=== PATIENT | male | born 1945 | race Caucasian/White ===

== ENCOUNTER 2022-05-06 19:55 | Emergency (ER) | payer MEDICARE, SELFPAY ==
[2022-05-06] VITALS (17 sets, daily range): BP systolic 131–159; BP diastolic 89–107; PULSE 72–90; RESP 24; TEMP 37; O2SAT 92–98; BMI 23.4
[2022-05-06 21:06] LABS: PCR FLU A POSITIVE PCR FLU A (Negative); PCR FLU B Negative PCR FLU B (Negative); PCR RSV Negative PCR RSV (Negative)
[2022-05-06 21:09] LABS: SARS PCR* Negative SARS-CoV-2 (Negative)
[2022-05-06 21:23] LABS: Basophils Absolute Auto 0.01 K/uL (0.00-0.30); Basophils Percent Auto 0.1 % (0.0-3.0); Hematocrit 39.4 % (37.0-53.0); Hemoglobin* 13.8 gm/dL (13.5-17.5); Immature Granulocytes Abs Auto 0.02 K/uL (0.00-0.30); Immature Granulocytes Pct Auto 0.2 %; Mean Corpuscular HGB Conc 35 gm/dL (32-36); Mean Corpuscular Hemoglobin 30 pg (26-34); Mean Corpuscular Volume 86 fL (80-100); Monocytes Percent Auto 9.7 % (0.0-11.0); Platelet Count* 248 K/uL (140-440); RDW Coefficient of Variation % 12.1 % (11.5-15.5); Red Blood Count 4.58 m/uL (4.30-5.90); White Blood Count* 8.53 K/uL (4.50-11.00)
[2022-05-06] MEDS: LOPERAMIDE HCL 2 MG CAPSULE 4 MG PO (21:25)
[2022-05-06] MEDS: ONDANSETRON 2 MG/ML inj 4 MG IVP (21:25)
[2022-05-06] MEDS: 0.9 % SODIUM CHLORIDE 1000 ml 1,000 ML IV ×2 (21:26→23:21)
--- NOTE | 2022-05-06 21:31 | ED_ITS ---
HPI - General Adult General Chief complaint: Nausea/Vomiting Stated complaint: Cough Vomiting, Diarrhea Time Seen by Provider: 05/06/22 21:06 History of Present Illness HPI narrative: 77-year-old man presenting with spouse to the emergency department complaint of vomiting and diarrhea that began during a few days of coughing; symptoms all seem to have started with rhinorrhea. Spouse with similar symptoms. He thinks the mucus might have triggered him. Did take some what might be Tessalon Perles and that seems to have helped. He has not noted any hematemesis and this been no hematochezia. I ask him about pain any saddle yeah but it sounds like he is referring to joint aches. Old injuries various joints are enhanced in their discomfort. No rashes. Just feels totally worn out at this point. No particular exposures. Up-to-date with COVID and influenza vaccination. In ad dition to the cough keeping him awake, he thinks the cough medicines he has been taking cause him to have anxiety; ?I haven't slept in so long?. He does have [place] that he takes for back pain. Related Data Home Medications Medication Instructions Recorded Confirmed aspirin-sod bicarb-citric acid .ROUTE 05/06/22 lisinopril 10 mg tablet mg 05/06/22 mirtazapine 7.5 mg tablet mg 05/06/22 phenylephrine HCl 10 mg tablet 10 mg PO Q4-6H PRN 05/06/22 05/06/22 (Nasal Decongestant (phenylephrine)) zolpidem 10 mg tablet mg 05/06/22 Allergies Allergy/AdvReac Type Severity Reaction Status Date / Time No Known Drug Allergies Allergy Verified 05/06/22 20:17 Review of Systems Status of ROS: Reports: 10 or more systems reviewed and unremarkable except as noted in History and below [facility] Social History Smoking Status: Never smoker Do you use any of these nicotine containing products: None Second hand tobacco smoke exposure: No How often do you have a drink containing alcohol: 4 or more times a week AUDIT-C Alcohol total score: 4 Non-prescribed substance use: denies use Exam Narrative: Exam Narrative: Pleasant. Slim. Seems tired/fatigued. Breathing easily. Lungs with trace basilar crepitus that resolved. Good air movement. Cardiovascular with regular rate and rhythm no murmur rub or gallop. Abdomen is flat soft and appears to be nontender. Extremities are without edema. Well perfused peripherally moving all extremities without difficulty. Oropharynx is actually moist. Cranial nerves 2-12 appear to be intact. Const: Vital Signs, click to edit/add: Vital Signs - 24 hr 05/06/22 20:10 05/06/22 20:46 05/06/22 20:47 Temperature 98.6 F Pulse Rate 73 72 Pulse Rate [Left P ulse Oximeter] 84 Respiratory Rate 24 Blood Pressure 157/94 H Blood Pressure [Ri ght Upper Arm] 150/89 H Pulse Oximetry 98 94 92 Oxygen Delivery Me thod Room Air 05/06/22 21:00 05/06/22 21:01 05/06/22 21:31 Temperature Pulse Rate 75 75 82 Pulse Rate [Left P ulse Oximeter] Respiratory Rate Blood Pressure 152/91 H Blood Pressure [Ri ght Upper Arm] Pulse Oximetry 94 95 97 Oxygen Delivery Me thod 05/06/22 21:35 05/06/22 21:36 05/06/22 22:00 Temperature Pulse Rate 74 74 77 Pulse Rate [Left P ulse Oximeter] Respiratory Rate Blood Pressure 150/96 H Blood Pressure [Ri ght Upper Arm] Pulse Oximetry 96 95 97 Oxygen Delivery Me thod 05/06/22 22:01 05/06/22 22:02 05/06/22 22:15 Temperature Pulse Rate 77 75 79 Pulse Rate [Left P ulse Oximeter] Respiratory Rate Blood Pressure 153/89 H Blood Pressure [Ri ght Upper Arm] Pulse Oximetry 93 97 98 Oxygen Delivery Me thod 05/06/22 22:30 05/06/22 22:31 05/06/22 23:21 Temperature Pulse Rate 77 79 80 Pulse Rate [Left P ulse Oximeter] Respiratory Rate Blood Pressure 159/95 H Blood Pressure [Ri ght Upper Arm] Pulse Oximetry 94 92 94 Oxygen Delivery Me thod 05/06/22 23:30 05/06/22 23:32 05/07/22 00:00 Temperature Pulse Rate 82 90 85 Pulse Rate [Left P ulse Oximeter] Respiratory Rate Blood Pressure 131/107 H Blood Pressure [Ri ght Upper Arm] Pulse Oximetry 96 95 94 Oxygen Delivery Me thod 05/07/22 00:04 Temperature Pulse Rate 85 Pulse Rate [Left P ulse Oximeter] Respiratory Rate Blood Pressure Blood Pressure [Ri ght Upper Arm] Pulse Oximetry 94 Oxygen Delivery Me thod Documenting provider has reviewed patient's vital signs: yes Course Vital Signs Vital signs: Initial Vital Signs Temperature 98.6 F 05/06/22 20:10 Temperature Source Temporal Artery Scan 05/06/22 20:10 Pulse Rate 84 05/06/22 20:10 Respiratory Rate 24 05/06/22 20:10 Blood Pressure 150/89 H 05/06/22 20:10 Blood Pressure Mean 109 05/06/22 20:10 Blood Pressure Position Sitting 05/06/22 20:10 Pulse Oximetry 98 05/06/22 20:10 Oxygen Delivery Method 05/06/22 20:10 Vital Signs Temperature 98.6 F 05/06/22 20:10 Pulse Rate 84 05/06/22 20:10 Respiratory Rate 24 05/06/22 20:10 Blood Pressure 150/89 H 05/06/22 20:10 Pulse Oximetry 98 05/06/22 20:10 Oxygen Delivery Method 05/06/22 20:10 Temperature 98.6 F 05/06/22 20:10 Pulse Rate 85 05/07/22 00:04 Respiratory Rate 24 05/06/22 20:10 Blood Pressure 131/107 H 05/06/22 23:32 Pulse Oximetry 94 05/07/22 00:04 Oxygen Delivery Method 05/06/22 20:10 Medical Decision Making MDM Narrative Medical decision making narrative: Given IV fluids. Ultimately 2 L. mildly hyponatremic and labs; presumably this would have been normalized with the fluids he received of normal saline. Also received IV Zofran and oral loperamide. Ultimately interested in leaving following fluid resuscitation apparently feeling better but when inquired would mention again how he just had been feeling well. I take it to mean still with persistent fatigue. And then again his concern about lack of sleep and he thinks some anxiety and this regard. Was ordered for lorazepam orally. Unfortunately he did vomit this up he thinks due to mucus production. He had also been drinking straight water challenging I think a rather empty stomach. Tested positive for influenza A. Did do a chest x-ray which by my read seems to have infiltrative or possibly atelectatic process in the left lower lung field. I would note moderately elevated CRP. Due to duration of symptoms I think it is reasonable to treat him with some antibiotics at this point. Lab Data Lab results reviewed: Yes I reviewed the patient's lab results Labs: Lab Results 05/06/22 05/06/22 05/06/22 Range/Units 20:14 21:00 21:00 WBC 8.53 (4.50-11.00) K/uL RBC 4.58 (4.30-5.90) m/uL Hgb 13.8 (13.5-17.5) gm/dL Hct 39.4 (37.0-53.0) % MCV 86 (80-100) fL MCH 30 (26-34) pg MCHC 35 (32-36) gm/dL RDW Coeff of Antoine 12.1 (11.5-15.5) % Plt Count 248 (140-440) K/uL Neut % (Auto) 80.0 H (42.0-72.0) % Lymph % (Auto) 10.0 L (20-44) % [place]et % (Auto) 9.7 (0.0-11.0) % Eos % (Auto) 0.0 (0.0-7.0) % Baso % (Auto) 0.1 (0.0-3.0) % Neut # (Auto) 6.80 (1.7-7.0) K/uL Lymph # (Auto) 0.90 (0.90-2.90) K/uL Burnet # (Auto) 0.80 (0.00-0.90) K/UL Eos # (Auto) 0.00 (0.00-0.50) K/uL Baso # (Auto) 0.01 (0.00-0.30) K/uL Sodium 132 L (135-149) mmol/L Potassium 3.4 L (3.6-5.1) mmol/L Chloride 100 (96-114) mmol/L Carbon Dioxide 23 (20-32) mmol/L BUN 14 (7-30) mg/dL Creatinine 0.5 (0.5-1.5) mg/dL Estimated Creat Clear 60.80 Estimated GFR 106 ml/min Glucose 119 H (60-115) mg/dL Calcium 8.7 (8.4-10.6) mg/dL Total Bilirubin (0.1-1.5) mg/dL Direct Bilirubin (0.0-0.5) mg/dL AST (12-35) U/L ALT (4-50) U/L Alkaline Phosphatase (40-150) U/L C-Reactive Protein (0.5-1.0) mg/dL Total Protein (6.0-8.3) g/dL Albumin (3.3-5.0) g/dL SARS-CoV-2 (PCR) Negative SARS-CoV-2 (Negative) Influenza Type A (PCR) POSITIVE PCR FLU A A (Negative) Influenza Type B (PCR) Negative PCR FLU B (Negative) RSV (PCR) Negative PCR RSV (Negative) 05/06/22 Range/Units 21:00 WBC (4.50-11.00) K/uL RBC (4.30-5.90) m/uL Hgb (13.5-17.5) gm/dL Hct (37.0-53.0) % MCV (80-100) fL MCH (26-34) pg MCHC (32-36) gm/dL RDW Coeff of Antoine (11.5-15.5) % Plt Count (140-440) K/uL Neut % (Auto) (42.0-72.0) % Lymph % (Auto) (20-44) % Burnet % (Auto) (0.0-11.0) % Eos % (Auto) (0.0-7.0) % Baso % (Auto) (0.0-3.0) % Neut # (Auto) (1.7-7.0) K/uL Lymph # (Auto) (0.90-2.90) K/uL Burnet # (Auto) (0.00-0.90) K/UL Eos # (Auto) (0.00-0.50) K/uL Baso # (Auto) (0.00-0.30) K/uL Sodium (135-149) mmol/L Potassium (3.6-5.1) mmol/L Chloride (96-114) mmol/L Carbon Dioxide (20-32) mmol/L BUN (7-30) mg/dL Creatinine (0.5-1.5) mg/dL Estimated Creat Clear Estimated GFR ml/min Glucose (60-115) mg/dL Calcium (8.4-10.6) mg/dL Total Bilirubin 0.9 (0.1-1.5) mg/dL Direct Bilirubin 0.1 (0.0-0.5) mg/dL AST 27 (12-35) U/L ALT 24 (4-50) U/L Alkaline Phosphatase 51 (40-150) U/L C-Reactive Protein 7.8 H (0.5-1.0) mg/dL Total Protein 7.0 (6.0-8.3) g/dL Albumin 3.9 (3.3-5.0) g/dL SARS-CoV-2 (PCR) (Negative) Influenza Type A (PCR) (Negative) Influenza Type B (PCR) (Negative) RSV (PCR) (Negative) Discharge Plan Discharge Clinical Impression: Influenza A, Gastroenteritis Patient Disposition: Home w/ Parent or Adult Condition: Improved Additional Instructions: Focus on hydration. As I said straight water on an empty stomach or recently vomited stomach I think can be a little harsh. I would consider diluted juices or soup broths. Advancing your diet slowly over the next 36 hours to thicker soups and smoothies. Rice. [place]. If the diarrhea continues, can take loperamide if needed, as long as no fever or blood in your stool. Return for intractable vomiting, intractable diarrhea, increasing pain, shortness of breath. Liza from [facility] Prescriptions: No Action phenylephrine HCl [Nasal Decongestant (PE)] 10 mg tablet 10 mg PO Q4-6H PRN aspirin-sod bicarb-citric acid [[place] Extra Strength] .ROUTE lisinopril 10 mg tablet Label Comments: TAKE ONE TABLET BY MOUTH EVERY DAY zolpidem 10 mg tablet Label Comments: TAKE ONE TABLET BY MOUTH AT BEDTIME NEEDED FOR SLEEP--DO NOT USE WITH NARCOTIC PAIN MEDICATIONS mirtazapine 7.5 mg tablet Label Comments: TAKE ONE TABLET BY MOUTH AT BEDTIME Follow Up/Referrals: Lucila Valencia DO [Primary Care Provider] - Stand Alone Forms: [facility] Info Instructions
[2022-05-06 21:38] LABS: Albumin* 3.9 g/dL (3.3-5.0)
[2022-05-06 21:39] LABS: Chloride* 100 mmol/L (96-114); Potassium* 3.4 mmol/L (3.6-5.1); Sodium* 132 mmol/L (135-149)
[2022-05-06 21:41] LABS: Alanine Aminotransferase* 24 U/L (4-50); Alkaline Phosphatase* 51 U/L (40-150); Aspartate Amino Transferase* 27 U/L (12-35); Bilirubin Direct* 0.1 mg/dL (0.0-0.5); Bilirubin Total* 0.9 mg/dL (0.1-1.5)
[2022-05-06 21:42] LABS: Blood Urea Nitrogen* 14 mg/dL (7-30); Carbon Dioxide* 23 mmol/L (20-32); Creatinine* 0.5 mg/dL (0.5-1.5); Estimated Glomerular Filt Rate 106 ml/min; Glucose* 119 mg/dL (60-115)
[2022-05-06 21:43] LABS: Calcium* 8.7 mg/dL (8.4-10.6)
[2022-05-06 21:44] LABS: C Reactive Protein* 7.8 mg/dL (0.5-1.0); Slide Review Reflex No
--- NOTE | 2022-05-06 22:08 | CRLHL7_ITS ---
For Patients: As a result of the Century Cures Act, medical imaging exams and procedure reports are released immediately into your electronic medical record. You may view this report before your referring provider. If you have questions, please contact your health care provider. INDICATION: Cough for 6-7 days. Influenza A TECHNIQUE: Chest radiograph 1 view COMPARISON: 04/27/2015 FINDINGS: Mediastinum: The mediastinum is normal in appearance. The heart silhouette is normal in size and morphology. Lung: Mild patchy airspace opacities present in the left lung base. No sign of pleural effusion seen. No pneumothorax is identified. Bone and Soft tissue: Unremarkable for age. IMPRESSION: 1. Mild patchy airspace opacities present in the left lung base. These findings can be seen with atelectasis and/or pneumonia. Dictated by Jj Bustillos MD @ 05/06/2022 11:04:51 PM Dictated by: Jj Bustillos MD @ 05/06/2022 23:04:56 (Electronically Signed)
[2022-05-07] VITALS: PULSE 85; O2SAT 94
[2022-05-07 00:04] VITALS: PULSE 85; O2SAT 94
[2022-05-07] MEDS: LORazepam 1 MG TABLET PO (00:14)
== END 2022-05-07 00:45 | disposition home or self-care (01) ==
PROVIDERS: Emergency Provider Family Medicine; PCP Family Medicine
DX: J09.X2 Influenza due to identified novel influenza A virus with other respiratory manifestations (principal); K52.9 Noninfective gastroenteritis and colitis, unspecified
CPT/HCPCS: 36415; 71045; 80048; 80076; 85025; 86140; 87502; 87634; 87635; 96374; 99284; A9270; J2405; J7030